=== PATIENT | male | born 1990 | race Caucasian/White ===

== ENCOUNTER → 2016-11-17 | Outpatient (CLI) | payer BC ==
[2016-11-17 11:15] LABS: BASO % 0.5 %; BASO ABS # 0.02 K/uL (0-0.2); COMPLETE YES; EOS % 1.4 %; HEMATOCRIT 43.3 % (42-52); LYMPH % 44.7 %; LYMPH ABS # 1.98 K/uL (1.2-3.4); MEAN CELL VOLUME 86.4 fL (80-100); MEAN CORPUSCULAR HEMOGLOBIN 30.7 pg (25-34); MEAN CORPUSCULAR HGB CONC 35.6 g/dl (32-36); MEAN PLATELET VOLUME 10.8 fL (7.4-10.4); MONO % 8.6 %; NEUT % 44.8 %; PLATELET COUNT 239 K/uL (130-400); RED BLOOD COUNT 5.01 M/uL (4.7-6.1); WHITE BLOOD COUNT 4.43 K/uL (4.8-10.8)
[2016-11-17 11:32] LABS: CHOLESTEROL/HDL RATIO 2.4
== END | disposition home or self-care (01) ==
LOC: C.LABBC 08:00
PROVIDERS: ATTEND Family Medicine
DX: E29.1 Testicular hypofunction (principal); Z13.220 Encounter for screening for lipoid disorders; Z13.1 Encounter for screening for diabetes mellitus; Z13.0 Encounter for screening for diseases of the blood and blood-forming organs and certain disorders involving the immune mechanism

== ENCOUNTER → 2017-11-12 | Outpatient (CLI) | payer BC ==
--- NOTE | 2017-11-12 17:45 | DIAGNOSTIC IMAGING REPORT ---
R KNEE 3 VIEWS CLINICAL HISTORY: Right knee pain. COMPARISON: None FINDINGS: Alignment of the right knee is anatomic. There is no fracture. Joint spaces are preserved. No osseous lesion is identified. IMPRESSION: Unremarkable right knee radiographs. Electronically signed by: Suhas Brown M.D. 11/12/2017 5:44 PM Dictated Date/Time: 11/12/2017 5:44 PM
== END | disposition home or self-care (01) ==
LOC: C.RAD 17:25
PROVIDERS: ATTEND Internal Medicine
DX: M25.561 Pain in right knee (principal)